=== PATIENT | female | born 1950 | race Two or more races ===

== ENCOUNTER 2019-12-11 07:45 | Outpatient (CLI) | payer OTHER | END 2019-12-11 08:30 | disposition home or self-care (01) | LOC: TOM 07:45 | DX: K56.51 Intestinal adhesions [bands], with partial obstruction (principal) ==

== ENCOUNTER 2024-08-28 08:48 | Outpatient (CLI) | payer OTHER | END 2024-08-28 08:49 | disposition home or self-care (01) | LOC: TOM 08:48 | PROVIDERS: ATTEND Internal Medicine Gastroenterology | DX: K56.609 Unspecified intestinal obstruction, unspecified as to partial versus complete obstruction (principal); R19.5 Other fecal abnormalities ==